=== PATIENT | female | born 1965 | race Caucasian/White ===

== ENCOUNTER 2020-07-30 16:24 | Outpatient (REF) | payer OTHER, SELFPAY ==
--- NOTE | ~2020-07-30 | US_ITS ---
EXAMINATION: US RETROPERITONEAL LIMITED (RENAL ONLY) CLINICAL INFORMATION: Renal stones. COMPARISON: None TECHNIQUE: Real-time imaging of the kidneys. FINDINGS: RIGHT KIDNEY: 10.2 x 4.8 x 3.9 cm (SAG x AP x TRV). The kidney is normal in size, contour, and echogenicity. Renal cortical thickness is normal. No focal parenchymal lesions or hydronephrosis. Multiple right renal nonobstructing calculi. Mid pole calculus measuring 3 x 4 x 5 mm; 4 x 3 x 2 mm; 5 x 3 x 3 mm. LEFT KIDNEY: 11 x 6.6 x 5.6 cm (SAG x AP x TRV). The kidney is normal in size, contour, and echogenicity. Renal cortical thickness is normal. No focal parenchymal lesions or hydronephrosis. Multiple calculi seen. Upper pole 7 x 6 x 7 mm calculus; mid pole 5 x 5 x 5 mm calculus; lower pole 4 x 5 x 6 mm calculus. US/US renal BI IMPRESSION: Multiple bilateral renal nonobstructing calculi. No hydronephrosis.
[2020-08-05 15:11] LABS: URO-Brushite 24 Hr Urine 2.52 (<2.00); URO-Calcium 24 Hr Urine 261 mg/day (<250.0); URO-Calcium Oxalat 24 Hr Urine 1.08 (<2.00); URO-Citric Acid 24 Hr Urine 1052 mg/day (>320); URO-Creatinine 24 Hr Urine 1326 mg/day (600-1800); URO-Magnesium 24 Hr Urine 187 mg/day (>60.0); URO-Oxalate 24 Hr Urine 33 mg/day (<45); URO-Phosphorus 24 Hr Urine 919 mg/day (<1100); URO-Potassium 24 Hr Urine 72 mEq/day (19-135); URO-Sodium 24 Hr Urine 96 mEq/day (<200); URO-Sodium Urate 24 Hr Urine 0.63 (<2.00); URO-Sulfate 24 Hr Urine 18 mmol/day (<30); URO-Total Volume 2.89 L/day (>2.00); URO-Uric Acid 24 Hr Urine 0.13 (<2.00); URO-Uric Acid 24 Hr Urine 584 mg/day (<700); URO-pH 24 Hr Urine 6.9 (5.5-7.0)
[2020-08-06 07:50] LABS: URO-Comments SEE ABOVE
== END 2020-07-30 16:25 | disposition home or self-care (01) ==
LOC: HO.US 16:24
PROVIDERS: Visit Provider Urology
DX: N20.0 Calculus of kidney (principal)
CPT/HCPCS: 76775; 82340; 82507; 82570; 83735; 83945; 83986; 84105; 84133; 84300; 84392; 84560

== ENCOUNTER → 2020-08-17 11:21 | Outpatient (BNVA) | payer OTHER, SELFPAY | PROVIDERS: Visit Provider Urology ==